=== PATIENT | female | born 1935 | race Caucasian/White ===

== ENCOUNTER → 2017-03-06 | Outpatient (CLI) | payer OTHER ==
[~2017-03-06] MED LIST: ASPCH81 PO; CHOLTAB3 PO; CRD30 PO; CRS10 PO; CTP1 PO; CYM30 PO; DVN80 PO; FLNIN NAE; IBUP600T44 PO; LAMO150T32 PO; LEVO100T84 PO; METO100T14 PO; NXM/40 PO; OXYC-57 PO; TYLUNK PO
== END | disposition home or self-care (01) ==
LOC: C.RDSM 07:29
PROVIDERS: ATTEND Orthopaedic Surgery Sports Medicine
DX: M25.561 Pain in right knee (principal)

== ENCOUNTER → 2017-06-22 | Day surgery (SDC) | payer OTHER ==
[2017-06-18 10:00] VITALS: Ht 157.5 cm; Wt 71.8 kg
[~2017-06-22] VITALS: Ht 157.5 cm; Wt 71.8 kg
[~2017-06-22] MED LIST changes: +AFLI2INJ OPL; -ASPCH81 PO; +ASPCH81X PO; +BUSP15TA70 PO; -CHOLTAB3 PO; +CLON0.2T11 PO; -CRD30 PO; +CRS/10 PO; -CRS10 PO; -CTP1 PO; -CYM30 PO; +DILT120C68 PO; -DVN80 PO; -FLNIN NAE; +FLUT0.15 NAE; +GLC/500 PO; +HYDR12.55 PO; -IBUP600T44 PO; +IOPAMIDOL INJ 61% 15 ML VIAL ONE; -LAMO150T32 PO; +LAMO200T35 PO; -LEVO100T84 PO; +LEVO125T5 PO; +LIDOCAINE HCL 1% MPF 5 ML VIAL ONE; -METO100T14 PO; +MULT-190 PO; -NXM/40 PO; -OXYC-57 PO; +PRAZ1CAP10 PO; +PRLSR20 PO; +SODIUM CHLORIDE 0.9% INJ 10 ML VIAL ONE; -TYLUNK PO; +VALS320T PO
--- NOTE | 2017-06-22 13:38 | History & Physical Bridge - [place] ---
H&P Re-Evaluation Bridge Note: I have examined the patient, reviewed the History & Physical and in the interval since the performance of the History & Physical I have noted the following changes of clinical significance: No changes noted
--- NOTE | 2017-06-22 14:10 | Discharge Instructions ---
Discharge Instructions Date of Service Jun 22, 2017. Visit Reason for Visit: Lumbar Radiuclopathy Discharge Discharge Diagnosis / Problem: left leg pain Discharge Goals Goal(s): Decrease discomfort, Improve function Medications Stopped Medications Name(s): Asa 81mg daily, last dose 06/18/17 Activity Recommendations Activity Limitations: resume your previous activity Anesthesia . Post Anesthesia Instructions: If you have had General Anesthesia or IV Sedation: * Do not drive today. * Resume driving when surgeon permits. * Do not make important decisions or sign legal documents today. * Call surgeon for: 1. Temperature elevations greater than 101 degrees F. 2. Uncontrollable pain. 3. Excessive bleeding. 4. Persistent nausea and vomiting. 5. Medication intolerance (nausea, vomiting or rash). * For nausea and vomiting use only clear liquids such as: tea, soda, bouillon until nausea subsides, then gradually increase diet as tolerated. * If you have any concerns or questions, call your surgeon's office. If physician is unavailable and it is an emergency, call 911 or go to the nearest emergency room. . Diet Recommendations Recommended Home Diet: resume previous diet Procedures Procedures Performed: LUMBAR EPIDURAL STEROID INJECTION Pending Studies Studies pending at discharge: no Medical Emergencies . Who to Call and When: Medical Emergencies: If at any time you feel your situation is an emergency, please call 911 immediately. . Non-Emergent Contact Non-Emergency issues call your: Specialist . . "Provider Documentation" section prepared by Lucas Waters. .
[2017-06-22 14:13] VITALS: TEMP 36.7
[2017-06-22 14:18] VITALS: BP 151/85; PULSE 74; O2SAT 95
--- NOTE | 2017-06-22 14:47 | OPERATIVE REPORT ---
DATE OF OPERATION: 06/22/2017 PREOPERATIVE DIAGNOSIS: Grade-1 L4-L5 spondylolisthesis with left lower extremity radiculopathy. POSTOPERATIVE DIAGNOSIS: Same. PROCEDURE: Left paramedian L5-S1 intralaminar epidural steroid injection under fluoroscopic guidance. INDICATIONS: The patient is an 82-year-old white female who has been treated conservatively for spondylolisthesis and continues to have persistent left lower extremity radiculopathy down the L5 dermatomal distribution. She presents today for an epidural injection to provide her with relief of the radicular pain. PHYSICAL EXAMINATION: Pleasant female seated comfortably. There is a palpable step-off at L4-L5. She has sensitivity to palpation of the left sciatic notch. Normal lower extremity exam. Negative seated straight leg raises. CONSENT: Verbal and written consent was obtained from the patient. Risks and benefits were reviewed. Risks include, but are not limited to epidural abscess, epidural hematoma, allergic reaction and dural puncture. The patient wishes to proceed. DESCRIPTION OF PROCEDURE: The patient was taken back to the special procedures room of the [facility], where she was maintained in a prone position. Backside was cleansed with Betadine x3 and a dry sterile dressing was applied. Fluoroscope was used to identify the L5-S1 intralaminar space and overlying skin on the left side was anesthetized with 4 mL of lidocaine 1% with a 25-gauge 1-1/2 inch needle. A 22-gauge 3-1/2 inch Tuohy needle was then directed under fluoroscopic guidance into the intralaminar space. It was advanced under lateral guidance to a depth of 5 cm with a loss of resistance noted at this depth. Isovue-300 contrast 1 mL was injected in which demonstrated epidural uptake pattern. She then underwent injection after negative aspiration of 40 mg of Depo-Medrol and 4 mL of preservative free sodium chloride. Injection was well tolerated and reproduced a familiar transient radicular sensation down the leg. DISPOSITION: 1. The patient was taken out into the discharge recovery area, where she will be discharged home once discharge criteria have been met. 2. Follow up in the [facility] office in 2-4 weeks. I attest to the content of the Intraoperative Record and any orders documented therein. Any exception s are noted below.
== END | disposition home or self-care (01) ==
LOC: X.SURG 12:48
PROVIDERS: ATTEND Physical Medicine & Rehabilitation
DX: M43.16 Spondylolisthesis, lumbar region (principal); M54.16 Radiculopathy, lumbar region; Z98.890 Other specified postprocedural states